=== PATIENT | male | born 1960 | race Caucasian/White ===

== ENCOUNTER 2024-11-20 20:22 | Emergency (ER) | payer MEDICARE, OTHER ==
[~2024-11-20] VITALS: Ht 175.3 cm; Wt 85.0 kg
[2024-11-21 00:30] VITALS: TEMP 98.1
[2024-11-21 00:55] VITALS: BP 125/65; PULSE 62; RESP 16; O2SAT 100
== END 2024-11-21 00:59 | disposition home or self-care (01) ==
LOC: EMS 20:22
DX: L29.9 Pruritus, unspecified (principal); F15.90 Other stimulant use, unspecified, uncomplicated; Z59.02 Unsheltered homelessness
CPT/HCPCS: 99283; Z7502